=== PATIENT | male | born 1995 | race Caucasian/White ===

== ENCOUNTER 2017-02-01 02:59 | Emergency (ER) | payer SELFPAY ==
[~2017-02-01] VITALS: Ht 175.3 cm; Wt 72.6 kg
--- NOTE | 2017-02-01 03:34 | Emergency Room Report ---
History of Present Illness General Chief Complaint: Alcohol Intoxication Source: Friend, EMS Present Illness HPI Is a 22-year-old male with no past medical history. He present with altered mental status. According to his friends, they were out drinking tonight. No one was drinking heavily. Patient then started acting abnormal. He was combative and running it history. He was swinging at his friend. He's not acting normal. Unknown drug use. No trauma. They had to restrain him and called 911. By time he got here fell asleep. Unable to get any other history. Patient just came from [place] for an event. Allergies: Coded Allergies: No Known Allergies (Unverified , 02/01/17) Patient History Past Medical History: see triage record, old chart reviewed, unable to obtain Past Surgical History: unable to obtain Pertinent Family History: unable to obtain Social History: Reports: alcohol use Immunizations: other Reviewed Nursing Documentation: PMH: Agreed, PSxH: Agreed Nursing Documentation-PMH Past Medical History Deferred: Pt Cognitively Impaired Review of Systems All Other Systems: limited - Intoxication Physical Exam Vital Signs Date Time Temp Pulse Resp B/P Pulse Ox O2 Delivery O2 Flow Rate FiO2 02/01/17 02:54 98.4 84 14 132/86 95 Room Air vitals normal Sp02 EP Interpretation: reviewed, normal General Appearance: well appearing, no apparent distress, other - Stuporous. Sleeping Head: normocephalic, atraumatic Eyes: bilateral eye EOMI, bilateral eye PERRL ENT: hearing grossly normal, normal pharynx Neck: full range of motion, supple, no meningismus Respiratory: chest non-tender, lungs clear, normal breath sounds Cardiovascular #1: regular rate, rhythm, no murmur Gastrointestinal: normal bowel sounds, non tender, no mass, no organomegaly, no bruit, non-distended Musculoskeletal: back normal Neurologic: other - No focal deficit. Withdraw to pain in all 4 extremities Psychiatric: mood/affect normal Skin: warm/dry Medical Decision Making Diagnostic Impression: Primary Impression: Acute alcoholic intoxication Qualified Codes: F10.920 - Alcohol use, unspecified with intoxication, uncomplicated ER Course Patient present with alcohol intoxication. He slowly waking up. Admits to drinking vodka. Denies any drug use. He still sleepy. I see no trauma to warrant CT scan or x-rays. Basic drug screen negative. He may have ingested GHB which can cause similar symptom presentation. We'll discharge him when he is more clinically sober. I spoke with his friends who came here with him. We' ll contact them to take him home. Lab Results Impression labs unremarkable except for elevated alcohol level Last Vital Signs Date Time Temp Pulse Resp B/P Pulse Ox O2 Delivery O2 Flow Rate FiO2 02/01/17 02:54 98.4 84 14 132/86 95 Room Air Status: improved Disposition: HOME, SELF-CARE Referrals: NOT CHOSEN IPA/MD,REFERRING (PCP) Patient Instructions: Alcohol Intoxication, [id number] Additional Instructions: Abstain from drinking to excess. Followup with your doctor as needed in 7 days. Return if worse. DOUGLAS DUFF M.D. Feb 01, 2017 03:34
[2017-02-01 03:58] LABS: EOSINOPHILS % (AUTO) 2.4 % (0.0-3.0); MEAN CORPUSCULAR HEMOGLOBIN 28.2 PG (27.0-31.0); MEAN CORPUSCULAR HGB CONC 34.1 G/DL (32.0-36.0); MEAN CORPUSCULAR VOLUME 83 FL (80-99); MEAN PLATELET VOLUME 6.9 FL (6.5-10.1); MONOCYTES % (AUTO) 6.4 % (1.0-10.0); NEUTROPHILS % (AUTO) 62.2 % (45.0-75.0); PLATELET COUNT 260 K/UL (150-450); RED BLOOD COUNT 5.68 M/UL (4.70-6.10); RED CELL DISTRIBUTION WIDTH 11.1 % (11.6-14.8); WHITE BLOOD COUNT 4.2 K/UL (4.8-10.8)
[2017-02-01 04:15] LABS: ALCOHOL 259 mg/dL; ANION GAP 18 (5-15); CALCIUM 9.3 mg/dL (8.6-10.2); CARBON DIOXIDE 23 mEQ/L (20-30); CHLORIDE 105 mEQ/L (98-107); CREATININE 0.9 mg/dL (0.7-1.2); GLOMERULAR FILTRATION RATE > 60 mL/min (>60); HEMOLYSIS 6; SODIUM 146 mEQ/L (135-145)
[2017-02-01 05:00] VITALS: BP 96/50
[2017-02-01] MEDS ORDERED: Ammonia Inhalant 0.33mL 1 Amp INH ONE (06:16)
[2017-02-01 07:00] VITALS: BP 109/61
[2017-02-01 07:35] VITALS: BP 109/61
== END 2017-02-01 07:35 | disposition home or self-care (01) ==
LOC: EDBD 02:59 → EMR 03:29
DX: F10.920 Alcohol use, unspecified with intoxication, uncomplicated (principal)
CPT/HCPCS: 36415; 80048; 80300; 85025; 96360; 99284; G0480; 80329